=== PATIENT | female | born 1990 | race Asian ===

== ENCOUNTER 2018-08-22 06:18 | Inpatient (IN) ==
[2018-08-22] MEDS ORDERED: OXYTOCIN 30 UNITS/500 ML BAG IV PRN ×3 (07:57→18:16)
--- NOTE | 2018-08-22 08:17 | History & Physical Report ---
Date of Service August 22, 2018 Assessment & Plan (1) Gestational hypertension affecting first : bps good this am, no s/s of pet, labs normal yesterday. Plan pitocin induction. arom as indicated. epidural on demand. (2) with 37 weeks completed gestation: fetus category one. History of Present Illness Chief Complaint: presents for induction for ghtn Primary Care Provider: NO PCP Patient is a 28yoaf with iup at 37 6/7 weeks who presents for induction for GHTN. Patient went to office yesterday with elevated blood pressure 150s/90s. She returned to labor and delivery 5 hours later and still elevated, meeting the diagnosis for ghtn. Patient underwent mari bulb placement for cervical ripening last night. Labs yesterday were normal. Patient is asymptomatic. Notes she has some pain inthe ruq but has had that for two weeks. no n/v, perez, cp, sob, increased swelling. Patient notes some cramping/contractions since placement of bulb. Pateint is healthy and denies any significant medical or surgical issues. labs--B+/ab-/pap neg/ri/rprnr/hiv-/hepb-/gc/ct-/16 week gtt nl/ 28 week gtt 148 with nl 2 hr/afp neg/gbs neg Allergies Allergy/AdvReac Type Severity Reaction Status Date / Time No Known Allergies Allergy Unverified 08/21/18 21:30 Home Medications Home Medications Medication Instructions Recorded Confirmed Type vit no.127-lpwl-wyelx 1 tab PO DAILY 08/21/18 08/22/18 History [ Vitamin] Patient History Social History Preferred Language: [facility] Communication Ability: Effective Paper Bundler Required: No Beliefs That Will Affect Care: None marital status: Current Living Situation: Spouse Other Information That Helps Us Care for You: No Feels Safe at Home: Yes Safety Concerns: Feels Safe At This Time Smoking Status: Never smoker Second Hand Exposure: No Hx Alcohol Use: No Hx Substance Use: No Review of Systems All systems reviewed & are unremarkable except as noted in HPI & below Physical Exam Constitutional: WD/WN, vitals as above Cardiovascular: Extremities: no calf tenderness and no pedal edema DTRs +2/2, no clonus Gastrointestinal (Abdomen): soft, nt, gravid Genitourinary: Mari bulb removed with gentle traction cx--3-4/75/-2/very soft/mid toco--jessica efm--140s with mod variability, accels to 170s, no decels Results & Data Vital Signs (Past 12 Hours) Vital Signs Temp Pulse Resp BP 08/22/18 07:47 36.5 C 71 16 144/78 H 08/22/18 07:43 71 144/78 H 08/22/18 07:41 36.5 C 20
[2018-08-22] MEDS: LACTATED RINGER'S 1,000 ML IV PRN ×2 (08:27→12:23)
[2018-08-22 08:28] LABS: Hematocrit (blood only) 34.5 % (37-47); Hemoglobin 11.5 g/dL (12.0-16.0); Mean Corpuscular Volume 86.7 fL (80-100); Mean Platelet Volume 11.4 fL (7.4-10.4); Platelet Count 144 K/uL (130-400); RDW Coefficient of Variation 13.1 % (11.5-14.5); RDW Standard Deviation 41.5 fL (36.4-46.3); Red Blood Count 3.98 M/uL (4.2-5.4); White Blood Count 11.27 K/uL (4.8-10.8)
[2018-08-22 08:42] LABS: Mean Corpuscular Hgb Conc 33.3 g/dL (32-36)
--- NOTE | 2018-08-22 09:13 | Obstetrical Progress Note ---
Date of Service August 22, 2018 Assessment & Plan (1) Gestational hypertension affecting first : (2) with 37 weeks completed gestation: pt aware i am assuming care. she will start pitocin induction, plan arom with regular pattern. fhts categ 1. family and pt agree. Subjective pt in bed, no complaints. Physical Exam Genitourinary: OB Exam Monitor Tracing: + external FHT monitor used, + external uterine monitor used and + category I Results & Data Vital Signs (Past 12 Hours) Vital Signs Temp Pulse Resp BP 08/22/18 08:40 72 142/80 H 08/22/18 07:47 36.5 C 71 16 144/78 H 08/22/18 07:43 71 144/78 H 08/22/18 07:41 36.5 C 20
--- NOTE | 2018-08-22 11:15 | Obstetrical Progress Note ---
Date of Service August 22, 2018 Assessment & Plan (1) Gestational hypertension affecting first : (2) with 37 weeks completed gestation: will see how arom helps labor pattern. fhts categ 1. Subjective feeling some ctx Physical Exam Constitutional: WD/WN, vitals as above Genitourinary: Manual OB Exam: + cervical dilation 4 cm, + cervical effacement 90% and + station -2 OB Exam Monitor Tracing: + external FHT monitor used (140 moderate variability, reactive), + external uterine monitor used (q2-3 ) and + category I pit at 10 Results & Data Vital Signs (Past 12 Hours) Vital Signs Temp Pulse Resp BP 08/22/18 10:41 72 121/80 08/22/18 09:52 72 132/82 08/22/18 09:43 83 129/100 08/22/18 08:40 72 142/80 H 08/22/18 07:47 36.5 C 71 16 144/78 H 08/22/18 07:43 71 144/78 H 08/22/18 07:41 36.5 C 20
[2018-08-22] MEDS ORDERED: ePHEDrine sulfate 50 MG/ML AMP ONE (11:42)
[2018-08-22] MEDS ORDERED: BUPIVACAINE 0.25% 30 ML VIAL ONE ×2 (11:42→12:49)
[2018-08-22] MEDS ORDERED: fentaNYL citrate 100 MCG/2 ML VIAL ONE (11:42)
[2018-08-22] MEDS ORDERED: fentaNYL 2MCG/ML ROPIV 1.25MG/ML 100 ML BAG EPI ONE (11:43)
--- NOTE | 2018-08-22 12:15 | Anesthesiology Consultation ---
Date of Service August 22, 2018 Assessment & Plan (1) Encounter for pre-operative examination: Chart Review Chart Review: Patient NOT seen in Pre Admission Testing and Acceptable Risk for Labor Epidural Consults Requested none Proposed Anesthesia Anesthesia Type: Labor Epidural Risk / Benefits Reviewed With: PT / POA / Parent / Guardian, Accepts Plan and Informed Consent Obtained History Height/Weight Height: 5 ft 7 in Weight: 70.76 kg Allergies Allergy/AdvReac Type Severity Reaction Status Date / Time No Known Allergies Allergy Unverified 08/21/18 21:30 Medications Home Medications Medication Instructions Recorded Confirmed Last Taken vit no.727-ehmo-ubobl 1 tab PO DAILY 08/21/18 08/22/18 08/21/18 08:00 [ Vitamin] Active Medications Generic Name Dose Route Start Last Admin Trade Name Freq PRN Reason Stop Dose Admin Lactated Ringer's 1,000 mls @ 125 mls/hr 08/22/18 07:57 08/22/18 12:23 Lr IV 08/24/18 07:56 125 mls/hr .Q8H PRN Administration L&D Protocol Protocol Oxytocin 30 units in 500 mls @ 10 mls/hr 08/22/18 08:00 08/22/18 10:45 Pitocin IV 08/24/18 07:59 0.6 units/hr .Q24H PRN 10 mls/hr Labor Induction/Augmentation Titration Protocol 0.6 UNITS/HR NPO Date Last Intake of Fluids: 08/22/18 Time Last Intake of Fluids: 12:12 Date Last Intake of Solids: 08/21/18 Time Last Intake of Solids: 07:00 Past Medical History Medical History History of wisdom tooth extraction Exercise / Class Metabolic Activity II 4-5 Yardwork/Stairs/Walk up hill Past Anesthesia History No Hx of Anesthesia Complications and No Family Hx of Anesthesia Complications History of PONV No Hx of PONV Social History Smoking Status: Never smoker Hx Alcohol Use: No Hx Substance Use: No substance use type: does not use Review of Systems Patient denies history of abnormal bleeding or bleeding disorder. Patient denies active use of anticoagulants other than low dose aspirin. Patient denies numbness, tingling or weakness in lower extremities. Physical Exam Vital Signs Last Vital Signs Temp 36.5 C 08/22/18 07:47 Pulse 76 08/22/18 12:04 Resp 16 08/22/18 07:47 BP 147/78 H 08/22/18 11:42 Pulse Ox 94 08/22/18 12:04 Constitutional not obese (Gravid uterus) ENMT Mouth: no TMJ abnormality and oral opening not small Thyromental Distance: < 3.5 Finger Breadths Mallampati Class: III Neck normal visual inspection; neck extension not limited Respiratory normal respiratory effort Auscultation: lungs clear to auscultation bilaterally Cardiovascular Rate/Rhythm: regular rate and regular rhythm Heart Sounds: no murmur Neurologic moves all extremities Motor/Sensory: no sensory deficit Psychiatric Orientation: alert and oriented x 3 Testing Laboratory Results 08/22/18 08:13
[2018-08-22] MEDS ORDERED: NALOXONE HCL 1 MG in SODIUM CHLORIDE 0.9% 1000ML 1,000 ML IV PRN (12:54)
[2018-08-22] MEDS ORDERED: ONDANSETRON INJ 2 MG/ML 2 ML VIAL IV PRN (12:54)
[2018-08-22] MEDS ORDERED: DiphenhydrAMINE HCL 50 MG/ML VIAL IV PRN (12:54)
[2018-08-22] MEDS ORDERED: NALOXONE HCL 0.4 MG/1 ML VIAL/CARP IV PRN (12:54)
[2018-08-22] MEDS ORDERED: NALBUPHINE HCL INJ 10 MG/ML AMP IV PRN (12:54)
[2018-08-22] MEDS ORDERED: ePHEDrine sulfate 50 MG/ML AMP IV PRN (12:54)
[2018-08-22] MEDS ORDERED: fentaNYL 2MCG/ML ROPIV 1.25MG/ML 100 ML BAG EPI PRN (12:54)
--- NOTE | 2018-08-22 14:18 | Obstetrical Progress Note ---
Date of Service August 22, 2018 Assessment & Plan (1) Gestational hypertension affecting first : (2) with 37 weeks completed gestation: good cx change. fhts categ 1. anticip 2nd stage soon. Subjective comfortable Physical Exam Constitutional: WD/WN, vitals as above Genitourinary: Manual OB Exam: + cervical dilation 9 cm, + cervical effacement 100% and + station + 1 OB Exam Monitor Tracing: + external FHT monitor used (140 moderate variability, +early decels, +spont accels), + external uterine monitor used (q2) and + category I pit at 10 Results & Data Vital Signs (Past 12 Hours) Vital Signs Temp Pulse Resp BP Pulse Ox 08/22/18 14:14 88 136/92 08/22/18 14:13 89 93 08/22/18 14:08 78 91 08/22/18 14:03 74 92 08/22/18 14:01 76 94 08/22/18 14:00 76 137/89 08/22/18 13:58 87 92 08/22/18 13:53 70 93 08/22/18 13:48 86 91 08/22/18 13:44 71 133/85 08/22/18 13:43 68 92 08/22/18 13:38 84 93 08/22/18 13:33 76 91 08/22/18 13:32 89 94 08/22/18 13:28 72 93 08/22/18 13:26 71 142/92 H 08/22/18 13:23 71 94 08/22/18 13:20 65 141/88 H 08/22/18 13:18 83 94 08/22/18 13:17 79 94 08/22/18 13:15 68 139/89 08/22/18 13:13 82 93 08/22/18 13:11 78 135/96 94 08/22/18 13:08 70 93 08/22/18 13:05 78 126/82 08/22/18 13:03 95 H 123/79 91 08/22/18 13:01 90 123/75 08/22/18 12:59 83 138/80 08/22/18 12:58 73 94 08/22/18 12:57 85 136/85 08/22/18 12:56 74 94 08/22/18 12:55 76 132/83 08/22/18 12:53 73 151/94 H 94 08/22/18 12:51 79 148/93 H 08/22/18 12:49 82 144/91 H 08/22/18 12:48 79 92 08/22/18 12:47 83 150/96 H 08/22/18 12:45 86 140/94 08/22/18 12:43 81 141/93 H 93 08/22/18 12:41 84 141/92 H 08/22/18 12:38 78 95 08/22/18 12:36 86 133/84 08/22/18 12:35 76 94 08/22/18 12:33 76 93 08/22/18 12:30 76 94 08/22/18 12:28 79 93 08/22/18 12:24 81 94 08/22/18 12:23 82 94 08/22/18 12:18 80 90 08/22/18 12:17 82 92 08/22/18 12:13 75 94 08/22/18 12:11 71 94 08/22/18 12:08 73 95 08/22/18 12:04 76 94 08/22/18 12:03 87 96 08/22/18 11:58 81 92 08/22/18 11:42 67 147/78 H 08/22/18 10:41 72 121/80 08/22/18 09:52 72 132/82 08/22/18 09:43 83 129/100 08/22/18 08:40 72 142/80 H 08/22/18 07:47 36.5 C 71 16 144/78 H 08/22/18 07:43 71 144/78 H 08/22/18 07:41 36.5 C 20
--- NOTE | 2018-08-22 15:20 | Obstetrical Progress Note ---
Date of Service August 22, 2018 Assessment & Plan (1) with 37 weeks completed gestation: (2) Gestational hypertension affecting first : begin 2nd stage. fhts categ 1. Subjective pt feeling some pressure Physical Exam Constitutional: WD/WN, vitals as above Genitourinary: Manual OB Exam: + cervical dilation 10 cm, + cervical effacement 100% and + station + 2 OB Exam Monitor Tracing: + external FHT monitor used (140 moderate variability, early decels, spont accels), + external uterine monitor used (q2) and + category I Results & Data Vital Signs (Past 12 Hours) Vital Signs Temp Pulse Resp BP Pulse Ox 08/22/18 15:14 93 H 135/88 85 L 08/22/18 15:13 90 93 08/22/18 15:08 94 H 93 08/22/18 15:03 85 94 08/22/18 15:00 90 146/94 H 08/22/18 14:58 93 H 94 08/22/18 14:53 77 93 08/22/18 14:52 80 94 08/22/18 14:48 82 94 08/22/18 14:47 77 94 08/22/18 14:44 86 145/90 H 08/22/18 14:43 83 93 08/22/18 14:42 80 94 08/22/18 14:38 83 94 08/22/18 14:37 95 H 93 08/22/18 14:33 91 H 93 08/22/18 14:31 87 94 08/22/18 14:29 99 H 137/88 08/22/18 14:28 87 92 08/22/18 14:26 91 H 94 08/22/18 14:23 91 H 93 08/22/18 14:18 91 H 92 08/22/18 14:14 88 136/92 08/22/18 14:13 89 93 08/22/18 14:08 78 91 08/22/18 14:03 74 92 08/22/18 14:01 76 94 08/22/18 14:00 76 137/89 08/22/18 13:58 87 92 08/22/18 13:53 70 93 08/22/18 13:48 86 91 08/22/18 13:44 71 133/85 08/22/18 13:43 68 92 08/22/18 13:38 84 93 08/22/18 13:33 76 91 08/22/18 13:32 89 94 08/22/18 13:28 72 93 08/22/18 13:26 71 142/92 H 08/22/18 13:23 71 94 08/22/18 13:20 65 141/88 H 08/22/18 13:18 83 94 08/22/18 13:17 79 94 08/22/18 13:15 68 139/89 08/22/18 13:13 82 93 08/22/18 13:11 78 135/96 94 08/22/18 13:08 70 93 08/22/18 13:05 78 126/82 08/22/18 13:03 95 H 123/79 91 08/22/18 13:01 90 123/75 08/22/18 12:59 83 138/80 08/22/18 12:58 73 94 08/22/18 12:57 85 136/85 08/22/18 12:56 74 94 08/22/18 12:55 76 132/83 08/22/18 12:53 73 151/94 H 94 08/22/18 12:51 79 148/93 H 08/22/18 12:49 82 144/91 H 08/22/18 12:48 79 92 08/22/18 12:47 83 150/96 H 08/22/18 12:45 86 140/94 08/22/18 12:43 81 141/93 H 93 08/22/18 12:41 84 141/92 H 08/22/18 12:38 78 95 08/22/18 12:36 86 133/84 08/22/18 12:35 76 94 08/22/18 12:33 76 93 08/22/18 12:30 76 94 08/22/18 12:28 79 93 08/22/18 12:24 81 94 08/22/18 12:23 82 94 08/22/18 12:18 80 90 08/22/18 12:17 82 92 08/22/18 12:13 75 94 08/22/18 12:11 71 94 08/22/18 12:08 73 95 08/22/18 12:04 76 94 08/22/18 12:03 87 96 08/22/18 11:58 81 92 08/22/18 11:42 67 147/78 H 08/22/18 10:41 72 121/80 08/22/18 09:52 72 132/82 08/22/18 09:43 83 129/100 08/22/18 08:40 72 142/80 H 08/22/18 07:47 36.5 C 71 16 144/78 H 08/22/18 07:43 71 144/78 H 08/22/18 07:41 36.5 C 20
[2018-08-22] MEDS ORDERED: CARBOPROST TROMETHAMINE 250 MCG/ML AMPUL ONE (16:46)
[2018-08-22 16:57] LABS: Base Excess Cord Venous Blood -9.6 mEq/L (-7.7-1.9); Cord Venous Blood HCO3 17 mmol/L (18.4-26.8); Cord Venous Blood PCO2 40 mmHg (30.4-57.2); Cord Venous Blood PO2 24 mmHg (14.1-43.3); Cord Venous Blood pH 7.25 (7.20-7.44)
[2018-08-22 17:03] LABS: Base Excess Cord Arterial Bld -10.3 mEq/L (-9-1.8); CO2 Cord Arterial Blood 60 mmHg (39.1-73.5); HCO3 Cord Arterial Blood 20 mmol/L (19.7-28.5); O2 Saturation Cord Venous Bld < 60.0 % (<68); PO2 Cord Arterial Blood 20.6 % (4.1-31.7); pH Cord Arterial Blood 7.13 (7.1-7.38)
[2018-08-22] MEDS ORDERED: IBUPROFEN 600 MG TAB PO PRN (17:08)
[2018-08-22] MEDS ORDERED: OXYCODONE/ACETAMINOPHEN 5mg/325mg TAB PO PRN (17:08)
[2018-08-22] MEDS ORDERED: ACETAMINOPHEN 325 MG TAB PO PRN (17:08)
[2018-08-22] MEDS ORDERED: CARBOPROST TROMETHAMINE 250 MCG/ML AMPUL IM ONE (17:08)
[2018-08-22] MEDS ORDERED: miSOPROStol 200 MCG TAB PR ONE (17:08)
--- NOTE | 2018-08-22 17:57 | Delivery Summary ---
DATE OF OPERATION: 08/22/2018 DELIVERY SUMMARY The patient dilated to complete and pushed to deliver a viable female infant Apgars 7 and 8 via over a second-degree perineal laceration. Mouth and nose bulb suctioned at the perineum. Shoulders and body delivered with ease. The was vigorous and crying at . Cord clamped at 30 seconds of life with infant to maternal abdomen where the cord was then doubly clamped and cut. The was taken to the radiant warmer for drying and attention. Placenta delivered spontaneously intact, 3-vessel cord. Hemostasis achieved with dilute Pitocin and uterine massage. Cervix examined and intact. Hemostasis seemingly initially inadequate due to poor uterine tone and therefore 800 mcg of rectal Cytotec as well as 0.25 mg of IM Hemabate were administered. The second degree perineal laceration had been repaired with 3-0 Vicryl in the routine fashion. There was a hymenal vaginal tear on the left that was reapproximated with a trjnsg-sx-aetaw suture of 3-0 Vicryl. However, upon further inspection, there was a pumper in that same area that was grasped with an Allis clamp, elevated and stitched with a zeydwy-ch-fzsfx suture of 3-0 Vicryl for excellent hemostasis. EBL 500 mL. Mother and baby stable in recovery. I attest to the content of the Intraoperative Record and any orders documented therein. Any exceptions are noted below. MTDD
[2018-08-22] MEDS ORDERED: OXYTOCIN 20 UNITS in LACTATED RINGER'S 1,000 ML IV SCH (18:16)
[2018-08-22] MEDS ORDERED: HYDROCORTISONE ACETATE 25 MG SUPP PR PRN (18:16)
[2018-08-22] MEDS ORDERED: SUPERCREAM 0.870% 15 GM JAR EXT PRN (18:16)
[2018-08-22] MEDS ORDERED: BENZOCAINE 20% AER SPR 82.5 GM CAN EXT PRN (18:16)
[2018-08-22] MEDS ORDERED: DIPHTHERIA/TETANUS/PERTUSSIS 0.5 ML SYR/VIAL IM ONE (18:16)
--- NOTE | 2018-08-22 19:05 | Anesthesia Procedure Note ---
Date of Service August 22, 2018 Anesthesia Post Epidural Note Vital Signs Vital Signs: Temp Pulse Resp BP Pulse Ox 36.9 C 77 18 134/90 90 08/22/18 17:07 08/22/18 18:22 08/22/18 18:22 08/22/18 18:22 08/22/18 17:43 Pain Intensity Bilateral Abdomen: Pain Intensity: 5 Notes Mental Status: alert / awake / arousable Patient Amnestic to Procedure: No Nausea / Vomiting: adequately controlled Pain: adequately controlled Airway Patency, RR, SpO2: stable & adequate BP & HR: stable & adequate Hydration State: stable & adequate Neuraxial Anesthesia: was administered and sensory block is resolving Anesthetic Complications: no major complications apparent and Pt Satisfied with anesthetic care Epidural: Removed without complications and With tip intact
--- NOTE | 2018-08-23 07:04 | Obstetrical Progress Note ---
Date of Service August 23, 2018 Assessment & Plan (1) Normal delivery at term: (2) Encounter for induction of labor: (3) Gestational hypertension affecting first : (4) with 37 weeks completed gestation: doing well, routine care. bps ok. enc to cont to try to breast feed baby. Subjective Ambulation: ambulating normally Voiding: no voiding problems Diet Tolerance:: regular diet Lochia:: Small Feeding Type:: breast feeding notes trying to breast feed but baby with low blood sugars and getting formula, pt notes her fingers are swollen Physical Exam Constitutional WD/WN, vitals as above Respiratory normal respiratory effort, lungs clear to auscultation Cardiovascular Rate/Rhythm: regular rate and regular rhythm Gastrointestinal (Abdomen) Inspection/Auscultation: abdomen normal to inspection Percussion/Palpation: abdomen soft Fundus firm at u, pt has not voided yet Musculoskeletal nt calves Psychiatric A+Ox3, euthymic affect Results & Data Vital Signs (Past 12 Hours) Vital Signs Temp Pulse Pulse Resp BP BP 08/23/18 04:15 36.9 C 71 18 108/67 08/23/18 00:00 37.3 C 83 20 113/70 08/22/18 21:00 37.1 C 76 18 130/79 08/22/18 20:20 37 C 20 08/22/18 19:05 100 H 129/74
[2018-08-23] MEDS: PRENATAL VITAMIN 1 TAB PO SCH (09:07)
[2018-08-23] MEDS: DOCUSATE SODIUM 100 MG CAP PO SCH ×2 (09:07→20:23)
--- NOTE | 2018-08-24 05:37 | Obstetrical Progress Note ---
Date of Service August 24, 2018 Assessment & Plan (1) with 37 weeks completed gestation: (2) Gestational hypertension affecting first : (3) Encounter for induction of labor: (4) Normal delivery at term: doing well, ready for discharge home, instructions reviewed, f/u 6 wks pp check. Day #:: 2 Subjective Ambulation: ambulating normally Voiding: no voiding problems Diet Tolerance:: regular diet Lochia:: Small Feeding Type:: breast feeding doing well, denies complaints. Physical Exam Constitutional WD/WN, vitals as above Respiratory normal respiratory effort, lungs clear to auscultation Cardiovascular Rate/Rhythm: regular rate and regular rhythm Gastrointestinal (Abdomen) Inspection/Auscultation: abdomen normal to inspection Percussion/Palpation: abdomen soft fundus firm 2 cm below umbilicus Musculoskeletal nt calves. Psychiatric A+Ox3, euthymic affect Results & Data Vital Signs (Past 12 Hours) Vital Signs Temp Pulse Resp BP 08/23/18 23:00 36.9 C 76 18 124/75
[2018-08-24 06:54] LABS: Hematocrit (blood only) 26.9 % (37-47); Hemoglobin 9.2 g/dL (12.0-16.0)
[2018-08-24] MEDS: DOCUSATE SODIUM 100 MG CAP PO SCH (08:50)
[2018-08-24] MEDS: PRENATAL VITAMIN 1 TAB PO SCH (08:50)
== END 2018-08-24 18:19 | disposition home or self-care (01) | DRG 807 ==
LOC: 4S1 07:40 → 4S2 20:30

== ENCOUNTER 2021-06-26 07:31 | Inpatient (IN) ==
[2021-06-26] MEDS ORDERED: OXYTOCIN 30 UNITS/500 ML BAG IV PRN ×5 (07:37→20:10)
[2021-06-26 08:25] LABS: Hematocrit (blood only) 35.7 % (37-47); Hemoglobin 12.5 g/dL (12.0-16.0); Mean Corpuscular Hemoglobin 31.1 pg (25-34); Mean Corpuscular Volume 88.8 fL (80-100); Mean Platelet Volume 10.5 fL (7.4-10.4); Platelet Count 142 K/uL (130-400); RDW Coefficient of Variation 13.6 % (11.5-14.5); RDW Standard Deviation 44.4 fL (36.4-46.3); Red Blood Count 4.02 M/uL (4.2-5.4); White Blood Count 8.67 K/uL (4.8-10.8)
[2021-06-26] MEDS: LACTATED RINGER'S 1,000 ML IV PRN ×2 (09:01→16:00)
--- NOTE | 2021-06-26 09:50 | History & Physical Report ---
Date of Service June 26, 2021 Assessment & Plan (1) IUGR (intrauterine growth restriction) affecting care of mother: Plan: IUGR affecting - here for IOL will begin pitocin augmentation epidural analgesia when requested anticipate vaginal (2) Gestational diabetes mellitus (GDM) affecting : Admission and Anticipated Discharge Date Admission Date: June 26, 2021 History of Present Illness Primary Care Provider: NO PCP Patient is a 31 yo female EDC 07/03/21 who presents at 39 weeks for IOL because of IUGR. AC is measuring 5%tile although overall EFW is 36%tile. NST's and DVP's are reassuring. GBS - negative. also complicated by GDM diet controlled. Allergies Allergy/AdvReac Type Severity Reaction Status Date / Time No Known Allergies Allergy Verified 06/25/21 14:39 Home Medications Medication Instructions Recorded Confirmed Type vits no.124-ferrous fum 1 tab PO DAILY 08/21/18 06/26/21 History 27 mg iron-folic acid 800 mcg tablet ( Vitamin) acetone (urine) test (Ketone Urine #50 ea 04/26/21 06/26/21 Rx Test) blood sugar diagnostic (OneTouch #150 ea 04/26/21 06/26/21 Rx Verio test strips) lancets 33 gauge (OneTouch Delica #150 ea 04/26/21 06/26/21 Rx Plus Lancet) Patient History Medical History Gestational hypertension Surgical History History of wisdom tooth extraction Family History (Updated 11/15/20 @ 09:53 by Maryse Sullivan) Mother Hypertension Father Hypertension Denies family history of Ovarian cancer Breast cancer Colorectal cancer Social History Smoking Status: Never smoker Second Hand Exposure: No; Hx Alcohol Use: No Hx Substance Use: No Preferred Language: Mandarin Welsh Communication Ability: Effective Food Critic Required: No Beliefs That Will Affect Care: None marital status: marital status details: Fortino Hannon(30) [phone] Current Living Situation: Spouse Current Living Situation Comment: lives with spouse, daughter, no pets current occupational status: employed current occupation: homemaker Other Information That Helps Us Care for You: No Feels Safe at Home: Yes Safety Concerns: Feels Safe At This Time Assistive Devices: None Review of Systems All systems reviewed & are unremarkable except as noted in HPI & below Physical Exam Constitutional: WD/WN, vitals as above Respiratory: normal respiratory effort, lungs clear to auscultation Cardiovascular: RRR, no murmur, no edema Psychiatric: A+Ox3, euthymic affect Genitourinary: OB Exam Abdomen: + vertex and + irregular contractions Manual OB Exam: + cervical dilation 3 cm, + cervical effacement 80% and + station (posterior) -1 OB Exam Monitor Tracing: + external FHT monitor used, + external uterine monitor used, + category I and + normal FHT variability Results & Data ([facility]) Vital Signs (Past 12 Hours) Vital Signs Temp Pulse Resp BP 06/26/21 07:34 81 130/63 06/26/21 07:30 97.5 F L 20 Code Status & VTE Plan VTE Prophylaxis Plan VTE Prophylaxis will be ordered: No Coding Level of Care Code None Diagnoses IUGR (intrauterine growth restriction) affecting care of mother O36.5990 Gestational diabetes mellitus (GDM) affecting O24.419
[2021-06-26] MEDS ORDERED: Nursing to Pharmacy Communication SCH ×2 (14:15→19:00)
[2021-06-26] MEDS ORDERED: ePHEDrine sulfate 50 MG/ML AMP ONE (15:53)
[2021-06-26] MEDS ORDERED: SODIUM CHLORIDE 0.9% INJ 10 ML VIAL ONE (15:54)
[2021-06-26] MEDS ORDERED: fentaNYL 2MCG/ML ROPIVACAINE 1.25MG/ML 100 ML BAG EPI ONE (15:54)
[2021-06-26] MEDS ORDERED: BUPIVACAINE 0.25% 30 ML VIAL ONE (15:54)
[2021-06-26] MEDS ORDERED: fentaNYL citrate 100 MCG/2 ML VIAL ONE (15:54)
[2021-06-26] MEDS ORDERED: ePHEDrine sulfate 50 MG/ML AMP IV PRN (15:58)
[2021-06-26] MEDS ORDERED: fentaNYL 2MCG/ML ROPIVACAINE 1.25MG/ML 100 ML BAG EPI PRN (15:58)
[2021-06-26] MEDS ORDERED: NALOXONE HCL 0.4 MG/1 ML VIAL/CARP IV PRN (15:58)
[2021-06-26] MEDS ORDERED: NALOXONE HCL 1 MG in SODIUM CHLORIDE 0.9% 1000ML 1,000 ML IV PRN (15:58)
[2021-06-26] MEDS ORDERED: NALBUPHINE HCL INJ 10 MG/ML AMP IV PRN (15:58)
[2021-06-26] MEDS ORDERED: ONDANSETRON INJ 2 MG/ML 2 ML VIAL IV PRN (15:58)
[2021-06-26] MEDS ORDERED: diphenhydrAMINE 50 MG/ML VIAL IV PRN (15:58)
--- NOTE | 2021-06-26 16:10 | Anesthesiology Consultation ---
Date of Service June 26, 2021 Assessment & Plan Chart Review Chart Review: Patient NOT seen in Pre Admission Testing and Acceptable Risk for Labor Epidural Consults Requested none ASA ASA2 Proposed Anesthesia Anesthesia Type: Labor Epidural and CSE Risk / Benefits Reviewed With: PT / POA / Parent / Guardian, Accepts Plan and Informed Consent Obtained History Height/Weight Height: 5 ft 6.14 in Weight: 72.121 kg Allergies Allergy/AdvReac Type Severity Reaction Status Date / Time No Known Allergies Allergy Verified 06/25/21 14:39 Medications Home Medications Medication Instructions Recorded Confirmed Last Taken vits no.124-ferrous fum 1 tab PO DAILY 08/21/18 06/26/21 06/25/21 19:00 27 mg iron-folic acid 800 mcg tablet ( Vitamin) acetone (urine) test (Ketone Urine #50 ea 04/26/21 06/26/21 Unknown Test) blood sugar diagnostic (ReelBigTouch #150 ea 04/26/21 06/26/21 Unknown Verio test strips) lancets 33 gauge (OneTouch Delica #150 ea 04/26/21 06/26/21 Unknown Plus Lancet) Active Medications Generic Name Dose Route Start Last Admin Trade Name Freq PRN Reason Stop Dose Admin Lactated Ringer's 1,000 mls @ 125 mls/hr 06/26/21 07:37 06/26/21 16:00 Lr IV 06/28/21 07:36 999 mls/hr .Q8H PRN Administration L&D Protocol Protocol Oxytocin 30 units in 500 mls @ 25 mls/hr 06/26/21 07:39 06/26/21 15:01 Pitocin IV 06/28/21 07:38 1.5 units/hr .Q20H PRN 25 mls/hr Labor Induction/Augmentation Titration Protocol 1.5 UNITS/HR NPO Date Last Intake of Fluids: 06/26/21 Time Last Intake of Fluids: 15:30 Date Last Intake of Solids: 06/26/21 Time Last Intake of Solids: 07:00 Past Medical History Medical History Gestational hypertension Exercise / Class Metabolic Activity II 4-5 Yardwork/Stairs/Walk up hill Past Family History Family History Mother Hypertension Father Hypertension Denies family history of Ovarian cancer Breast cancer Colorectal cancer Past Surgical History Surgical History History of wisdom tooth extraction Past Anesthesia History No Hx of Anesthesia Complications and No Family Hx of Anesthesia Complications History of PONV No Hx of PONV and No Hx of Motion Sickness Social History Smoking Status: Never smoker Hx Alcohol Use: No Hx Substance Use: No substance use type: does not use Review of Systems no chest pain or sob Physical Exam Vital Signs Last Vital Signs Temp 36.5 C 06/26/21 15:06 Pulse 69 06/26/21 15:55 Resp 20 06/26/21 15:06 BP 123/68 06/26/21 15:55 Sp02 98 ENMT Mouth: no TMJ abnormality Thyromental Distance: > or= 3.5 Finger Breadths Mallampati Class: II Neck normal visual inspection Respiratory normal respiratory effort Auscultation: lungs clear to auscultation bilaterally Cardiovascular Rate/Rhythm: regular rate and regular rhythm Musculoskeletal Spine: normal cervical ROM Neurologic moves all extremities Psychiatric Orientation: alert and oriented x 3 Testing Laboratory Results 06/26/21 07:58 06/26/21 08:24 POC Glucose 104 H
[2021-06-26] MEDS ORDERED: ACETAMINOPHEN 325 MG TAB PO PRN (20:10)
[2021-06-26] MEDS ORDERED: BENZOCAINE 20% AER SPR 82.5 GM CAN EXT PRN (20:10)
[2021-06-26] MEDS ORDERED: bisacodyL 10 MG SUPP PR PRN (20:10)
[2021-06-26] MEDS ORDERED: oxyCODONE/ACETAMINOPHEN 5mg/325mg TAB PO PRN (20:10)
[2021-06-26] MEDS ORDERED: DIPHTHERIA/TETANUS/PERTUSSIS 0.5 ML SYR/VIAL IM ONE (20:10)
[2021-06-26] MEDS ORDERED: HYDROCORTISONE ACETATE 25 MG SUPP PR PRN (20:10)
--- NOTE | 2021-06-26 20:10 | Anesthesia Procedure Note ---
Date of Service June 26, 2021 Anesthesia Post Epidural Note Vital Signs Vital Signs: Temp Pulse Resp BP Pulse Ox 36.6 C 81 18 116/75 100 06/26/21 19:05 06/26/21 20:05 06/26/21 19:05 06/26/21 20:04 06/26/21 20:05 Pain Intensity Abdomen: Pain Intensity: 1 Notes Mental Status: alert / awake / arousable and participated in evaluation Nausea / Vomiting: adequately controlled Pain: adequately controlled Airway Patency, RR, SpO2: stable & adequate BP & HR: stable & adequate Hydration State: stable & adequate Neuraxial Anesthesia: was administered and sensory block is resolving Anesthetic Complications: no major complications apparent and Pt Satisfied with anesthetic care Epidural: Removed without complications and With tip intact
--- NOTE | 2021-06-26 21:00 | Delivery Summary ---
Vaginal Delivery Summary Date of Service June 26, 2021 Vaginal Delivery Summary and 2nd Degree LAC Patient is a 31-year-old 2 para 1-0-0-1 female who presents at 39 weeks for induction of labor because of IUGR. Pitocin augmentation was begun and she received effective epidural analgesia when requested. Membranes were then ruptured for blood-tinged fluid. She progressed to full dilation and pushed effectively over intact perineum for delivery of a viable male infant. A tight nuchal cord was clamped and cut prior to delivering the rest the infant. The rest of the infant was delivered easily and placed on the mother's abdomen for further attention and drying. The infant was vigorous and moving all 4 limbs. The placenta was expressed intact with a three-vessel cord. Just prior to the head , there was a moderate amount of bleeding noted vag inally. There was a deep second-degree perineal laceration which was repaired with 3-0 chromic and 2-0 Vicryl in the usual fashion. Rectal exam confirmed that the anal sphincter was intact. There was still some bleeding noted after the perineal laceration was repaired, and this was found coming from a vaginal tear in the left upper vaginal sidewall. This was repaired with a running stitch of 3-0 chromic. At this point hemostasis appeared to be satisfactory. bleeding was controlled with dilute Pitocin and fundal massage. Estimated blood loss was 500 cc. Mother and were doing well after delivery[place] [facility] [place] Delivery Type Details: and 2nd Degree LAC
[2021-06-26] MEDS: DOCUSATE SODIUM 100 MG CAP PO SCH (22:27)
[2021-06-27 06:09] LABS: Hematocrit (blood only) 29.2 % (37-47); Hemoglobin 10.1 g/dL (12.0-16.0); Mean Corpuscular Hemoglobin 31.1 pg (25-34); Mean Corpuscular Hgb Conc 34.6 g/dL (32-36); Mean Corpuscular Volume 89.8 fL (80-100); Mean Platelet Volume 10.1 fL (7.4-10.4); Platelet Count 119 K/uL (130-400); RDW Coefficient of Variation 13.6 % (11.5-14.5); RDW Standard Deviation 44.8 fL (36.4-46.3); Red Blood Count 3.25 M/uL (4.2-5.4); White Blood Count 11.69 K/uL (4.8-10.8)
--- NOTE | 2021-06-27 07:35 | Obstetrical Progress Note ---
Date of Service <Neelam Torres DO - Last Filed: 06/27/21 07:35> June 27, 2021 Assessment & Plan <Neelam Torres DO - Last Filed: 06/27/21 07:35> (1) Encounter for care and examination after delivery: 31 yo post op day1 from [facility] GDM, IUGR, doing well. -Continue routine post care. -vital signs reviewed and WNL (Tmax 36.8) -Blood Type B+, GBS-, Rubella Immune -Encourage ambulation, monitor and control pain with Motrin, tylenol PRN, resume regular diet, monitor lochia -encourage breast feeding -hemoglobin 10.1 Day #:: 1 <Maria Del Rosario Herrera MD, FACOG - Last Filed: 06/27/21 07:40> (1) Encounter for care and examination after delivery: Subjective <Neelam Torres DO - Last Filed: 06/27/21 07:35> Ambulation: ambulating normally Voiding: no voiding problems Passing Gas:: Yes Diet Tolerance:: regular diet Lochia:: Small Feeding Type:: breast feeding Current Pain Level(1-10): 2 Review of Systems Denies fever, chills, sweats Denies shortness of breath, difficulty breathing, chest pain, palpitations, chest pressure. Denies breast pain. Denies dysuria. Denies headache or changes in vision. Physical Exam <Neelam Torres DO - Last Filed: 06/27/21 07:35> General: Alert, oriented. No acute distress. Cardiac: Regular rate and rhythm, no murmurs/rubs/gallops. Respiratory: Clear to auscultation bilaterally a/p, no wheezes/rales/rhonchi. No increased work of breathing. Symmetrical chest rise. No respiratory distress. Abdomen: Soft, nontender, nondistended. Bowel sounds present. Uterus: Uterine fundus firm, palpable 2 cm below umbilicus. Lower Extremities: No lower extremity edema or swelling. No deep calf pain. Elsy's negative bilaterally.. Results & Data ([facility]) <Neelam Torres DO - Last Filed: 06/27/21 07:35> Vital Signs (Past 12 Hours) Vital Signs Temp Pulse Pulse Resp BP BP Pulse Ox 04/13/22 04:00 36.8 C 70 18 104/70 99 06/27/21 00:00 36.8 C 67 20 124/80 99 06/26/21 22:06 93 H 132/71 06/26/21 22:05 36.9 C 18 06/26/21 22:00 36.9 C 64 20 102/80 100 06/26/21 21:51 93 H 124/70 06/26/21 21:37 98 H 137/72 06/26/21 21:35 18 06/26/21 21:28 88 133/65 06/26/21 21:06 77 109/71 06/26/21 21:05 16 06/26/21 20:51 79 116/66 06/26/21 20:50 18 06/26/21 20:39 89 138/63 06/26/21 20:35 18 06/26/21 20:21 82 146/86 H 06/26/21 20:20 18 06/26/21 20:05 81 20 100 06/26/21 20:04 72 116/75 06/26/21 20:00 74 100 06/26/21 19:55 73 100 06/26/21 19:50 77 100 06/26/21 19:45 83 100 06/26/21 19:40 90 100 06/26/21 19:35 89 100 <Maria Del Rosario Herrera MD, FACOG - Last Filed: 06/27/21 07:40> Co-Signing Physician Notes Resident Physician Supervision Note: I was present with Dr. Torres during the history and exam. I discussed the case with the resident and agree with the findings and plan as documented in the note. Any exceptions or clarifications are listed here: [None] Documented By: Maria Del Rosario Herrera MD, FACOG Resident Activity Tracking <Neelam Torres DO - Last Filed: 06/27/21 07:35> Resident Involvement: Resident Care Provided Care Provided: Adult Hospital Medicine and OB Delivery
[2021-06-27] MEDS: IBUPROFEN 600 MG TAB PO PRN ×2 (08:36→15:07)
[2021-06-27] MEDS: DOCUSATE SODIUM 100 MG CAP PO SCH ×2 (08:37→19:38)
[2021-06-27] MEDS: PRENATAL VITAMIN 1 TAB PO SCH (08:37)
[2021-06-27] MEDS ORDERED: bisacodyL 5 MG TABEC PO SCH (20:00)
--- NOTE | 2021-06-28 06:20 | Obstetrical Progress Note ---
Date of Service <Neelam Torres DO - Last Filed: 06/28/21 07:05> June 28, 2021 Assessment & Plan <Neelam Torres DO - Last Filed: 06/28/21 07:05> (1) Encounter for care and examination after delivery: 31 yo post op day2 from [facility] GDM, IUGR, doing well. -Continue routine post care. -vital signs reviewed and WNL (Tmax 37.1) -Blood Type B+, GBS-, Rubella Immune -Encourage ambulation, monitor and control pain with Motrin, tylenol PRN, resume regular diet, monitor lochia -encourage breast feeding -hemoglobin 10.1 Day #:: 2 <Alice Cruz MD - Last Filed: 06/28/21 06:55> (1) Encounter for care and examination after delivery: Subjective <Neelam Torres DO - Last Filed: 06/28/21 07:05> Ambulation: ambulating normally Voiding: no voiding problems Passing Gas:: Yes Diet Tolerance:: regular diet Lochia:: Small Feeding Type:: breast feeding Current Pain Level(1-10): 1 Review of Systems Denies fever, chills, sweats Denies shortness of breath, difficulty breathing, chest pain, palpitations, chest pressure. Denies breast pain. Denies dysuria. Denies headache or changes in vision. Physical Exam <Neelam Torres DO - Last Filed: 06/28/21 07:05> General: Alert, oriented. No acute distress. Cardiac: Regular rate and rhythm, no murmurs/rubs/gallops. Respiratory: Clear to auscultation bilaterally a/p, no wheezes/rales/rhonchi. No increased work of breathing. Symmetrical chest rise. No respiratory distress. Abdomen: Soft, nontender, nondistended. Bowel sounds present. Uterus: Uterine fundus firm, palpable 2 cm below umbilicus. Lower Extremities: No lower extremity edema or swelling. No deep calf pain. Elsy's negative bilaterally.. Results & Data ([facility]) <Neelam Torres DO - Last Filed: 06/28/21 07:05> Vital Signs (Past 12 Hours) Vital Signs Temp Pulse Resp BP Pulse Ox 06/28/21 04:59 37.1 C 80 18 116/84 97 04/14/22 00:00 37.2 C 86 20 114/74 98 06/27/21 21:48 36.7 C 81 18 115/71 99 <Alice Cruz MD - Last Filed: 06/28/21 06:55> Co-Signing Physician Notes Resident Physician Supervision Note: I interviewed and examined the patient. Discussed with Dr. Torres and agree with findings and plan as documented in the note. Any exceptions or clarifications are listed here: Patient is day 2, and for discharge today after her platelets are rechecked due to the drop yesterday. No significant / excessive bleeding seen. Documented By: Alice Cruz MD, FACOG Resident Activity Tracking <Neelam Torres DO - Last Filed: 06/28/21 07:05> Resident Involvement: Resident Care Provided Care Provided: Adult Hospital Medicine and OB Delivery
[2021-06-28 07:02] LABS: Hematocrit (blood only) 30.2 % (37-47); Hemoglobin 10.4 g/dL (12.0-16.0); Mean Corpuscular Hemoglobin 31.3 pg (25-34); Mean Corpuscular Hgb Conc 34.4 g/dL (32-36); Mean Platelet Volume 10.8 fL (7.4-10.4); Platelet Count 128 K/uL (130-400); RDW Standard Deviation 46.3 fL (36.4-46.3); Red Blood Count 3.32 M/uL (4.2-5.4); White Blood Count 11.01 K/uL (4.8-10.8)
[2021-06-28] MEDS: PRENATAL VITAMIN 1 TAB PO SCH (07:40)
[2021-06-28] MEDS: DOCUSATE SODIUM 100 MG CAP PO SCH (07:40)
== END 2021-06-28 09:30 | disposition home or self-care (01) | DRG 807 ==
LOC: 4S1 07:31 → 4E2 22:27